=== PATIENT | male | born 1970 | race Caucasian/White ===

== ENCOUNTER → 2018-02-14 | Outpatient (CLI) | payer OTHER ==
[~2018-02-14] MED LIST: BYSTOLIC20 MG PO; CARDURA8 MG PO; CATAPRES0.2 MG; GLUCOPHAGE500 MG; LASIX20 MG PO; LIPITOR80 MG; MICARDIS80 MG; PROVENTIL HFA6.7 GM IH; SPIRIVA1 INHALATI
== END | disposition home or self-care (01) ==
DX: R13.12 Dysphagia, oropharyngeal phase (principal); I69.351 Hemiplegia and hemiparesis following cerebral infarction affecting right dominant side; I69.320 Aphasia following cerebral infarction
CPT/HCPCS: 92611 GN; G8996 GN; G8997 GN; G8998 GN